=== PATIENT | female | born 1980 | race Two or more races ===

== ENCOUNTER 2018-04-20 12:27 | Inpatient (IN) | payer OTHER ==
[~2018-04-20] VITALS: Ht 149.9 cm; Wt 84.4 kg
[2018-05-04] MEDS ORDERED: SYNTHROID50 MCG PO (20:41)
[2018-05-04] MEDS ORDERED: IROSPAN 24/6 T1 EACH PO (20:43)
[2018-05-04] MEDS ORDERED: PRENATAL 19 TA1 EACH PO (20:43)
== END 2018-05-07 20:43 | DRG 807 ==
LOC: LDR 05-04 19:08 → OB/GYN 05-04 19:08
PROVIDERS: ADMIT Obstetrics & Gynecology
PROC: 4A1HXCZ Monitoring of Products of Conception, Cardiac Rate, External Approach (ICD-10-PCS; 2018-05-04)
PROC: 10E0XZZ Delivery of Products of Conception, External Approach (ICD-10-PCS; principal; 2018-05-05)
PROC: 3E033VJ Introduction of Other Hormone into Peripheral Vein, Percutaneous Approach (ICD-10-PCS; 2018-05-05)
DX: O80 Encounter for full-term uncomplicated delivery (principal); Z37.0 Single live birth; Z3A.40 40 weeks gestation of pregnancy